=== PATIENT | male | born 1965 | race Native Hawaiian/Other Pacific Islander ===

== ENCOUNTER 2023-01-09 12:04 | Day surgery (SDC) | payer OTHER ==
[~2023-01-09] VITALS: Ht 165.1 cm; Wt 79.4 kg
[2023-01-09] MEDS ORDERED: fentaNYL citrate 0.05 MG/ML VIAL ONE (12:46)
[2023-01-09] MEDS ORDERED: MIDAZOLAM 5 MG/5 ML VIAL ONE (12:47)
[2023-01-09] MEDS ORDERED: MIDAZOLAM 2 MG/2 ML VIAL IVP ONE (13:15)
== END 2023-01-09 14:00 | disposition home or self-care (01) ==
LOC: MDS 12:04 → MMU 12:06 → MDS 14:00
PROVIDERS: ATTEND Internal Medicine Gastroenterology
DX: R10.13 Epigastric pain (principal); K29.00 Acute gastritis without bleeding; K21.9 Gastro-esophageal reflux disease without esophagitis; Z79.899 Other long term (current) drug therapy
CPT/HCPCS: 36415; 43239; 86677; J2250; J3010